=== PATIENT | male | born 1990 | race Hispanic/Latino ===

== ENCOUNTER 2022-03-24 21:32 | Emergency (ER) | payer SELFPAY ==
[2022-03-24] MEDS ORDERED: Boostrix 0.5 ML (Tdap) VIAL (>/=7 yrs of age) ONE (22:47)
[2022-03-24] MEDS ORDERED: HYDROcodone/Acetaminophen 5/325 mg Tablet ONE (22:53)
== END 2022-03-25 00:02 | disposition home or self-care (01) ==
LOC: ERS 21:32
DX: T21.21XA Burn of second degree of chest wall, initial encounter (principal); T23.072A Burn of unspecified degree of left wrist, initial encounter; T20.07XA Burn of unspecified degree of neck, initial encounter; T31.0 Burns involving less than 10% of body surface; X12.XXXA Contact with other hot fluids, initial encounter
CPT/HCPCS: 90471; 90715

== ENCOUNTER 2023-12-01 20:26 | Emergency (ER) | payer SELFPAY | END 2023-12-01 20:50 | disposition home or self-care (01) | LOC: ERS 20:26 | DX: S61.217D Laceration without foreign body of left little finger without damage to nail, subsequent encounter (principal); X58.XXXD Exposure to other specified factors, subsequent encounter ==